=== PATIENT | female | born 1965 | race Caucasian/White ===

== ENCOUNTER 2022-08-07 00:10 | Emergency (ER) | payer BC ==
[2022-08-07] MEDS ORDERED: Sodium Chloride 0.9% 10 ML Syringe FLUSH PRN (00:26)
[2022-08-07] MEDS ORDERED: Ketamine 200 MG/20 ML MDV IVPUSH ONE (00:27)
[2022-08-07] MEDS ORDERED: HYDROmorphone 0.5 MG/0.5 ML Syringe IVPUSH ONE (00:27)
[2022-08-07 01:20] VITALS: BP 138/89; PULSE 102
[2022-08-07] MEDS ORDERED: Take Home: Acetaminophen/HYDROcodone 325-10 MG, 5 Tab Pack PO ONE (01:26)
[2022-08-07] MEDS ORDERED: Sodium Chloride 0.9% 1,000 ML IV SCH (01:30)
== END 2022-08-07 02:00 | disposition home or self-care (01) ==
LOC: VM.ED 00:10
DX: S52.592A Other fractures of lower end of left radius, initial encounter for closed fracture (principal); S52.692A Other fracture of lower end of left ulna, initial encounter for closed fracture; Z72.0 Tobacco use; Z88.0 Allergy status to penicillin; Z88.1 Allergy status to other antibiotic agents; W00.0XXA Fall on same level due to ice and snow, initial encounter
CPT/HCPCS: 25605; 29125; 73100-LT; 96374; 96375; 99283; 99283-25; A9270-GY; J1170; J3490; J7030